=== PATIENT | male | born 1975 | race Caucasian/White ===

== ENCOUNTER 2016-11-23 17:08 | Emergency (ER) | payer BC ==
--- NOTE | 2016-11-23 17:25 | EDPHY ---
H & P Time Seen by Provider: 11/23/16 17:10 HPI/ROS: Chief complaint. Vomiting blood HPI. Patient 41-year-old male here by EMS with complaint of vomiting bright red blood since a 30 this morning. He has been drinking alcohol the last 2 days. He has a history of alcoholism and a period of sobriety until 2 days ago. He has some upper abdominal crampy type pain. He has not had similar symptoms previously. No chest discomfort or trouble breathing. Diagnosis 1 month ago DVT but not taking anticoagulation as he says his doctor [place] did not recommended. ROS Constitutional. no fever/chills, no weakness Eyes. no problems with vision ENT. no sore throat, no nasal drainage Cardiovascular. no chest pain Respiratory. no shortness of breath, no cough Abdominal. Abdominal pain and vomiting blood . no problems urinating MS. no calf pain/swelling, no neck/back pain, no joint pain Skin. no rash Lymph. no swollen glands Neuro. no headache, no dizziness, no difficulty walking or with speech Past Medical/Surgical History: Bipolar illness, chronic pain, and DVT Social History: Single, daily smoker, recent alcohol Physical Exam: General Appearance: Alert well-developed male mild distress vital signs significant for blood pressure 110/70 with heart rate 61 Eyes: Pupils equal and round no pallor or injection. ENT, Mouth: Mucous membranes are moist. Respiratory: There are no retractions, lungs are clear to auscultation. Cardiovascular: Regular rate and rhythm. Gastrointestinal: Abdomen is soft with epigastric tenderness. No masses. Bowel sounds normal. Rectal exam shows brown stool Neurological: Awake and alert, sensory and motor exams grossly normal. Skin: Warm and dry, no rashes. Musculoskeletal: Neck is supple nontender. Extremities symmetrical, full range of motion. Left lower extremity slightly swollen Psychiatric: Patient is oriented X 3, there is no agitation. Constitutional: Initial Vital Signs Temperature (C) 37 C 11/23/16 17:18 Heart Rate 70 11/23/16 17:18 Respiratory Rate 16 11/23/16 17:18 Blood Pressure 75/59 L 11/23/16 17:18 O2 Sat (%) 96 11/23/16 17:18 O2 Delivery Mode Room Air Allergies/Adverse Reactions: acetaminophen [From Tylenol] Allergy (Verified 11/23/16 17:27) Home Medications: Medication Instructions Recorded Clonazepam 11/23/16 Depakote 11/23/16 Famotidine [Pepcid] 40 mg PO DAILY #10 tablet 11/23/16 Oxycodone HCl 11/23/16 Medical Decision Making - Diagnostics Imaging Results: Imaging Impressions Extremity Venous Study 11/23/16 17:40 Impression: There is no sonographic evidence of deep or superficial vein thrombosis in the left lower extremity. Findings were discussed with TROY JIMÉNEZ MD at 18:24, on 11/23/2016. Ultrasound left lower extremity reviewed by me and discussed with Dr. Coleman shows no evidence for DVT Procedures: IV normal saline with 2 L given. Monitor. Protonix IV. Fentanyl for pain. Zofran for nausea ED Course/Re-evaluation: Stool Hemoccult is negative. Re-evaluation 6:30 p.m.--patient is stable. Conversational. Vital signs show heart rate 62 with blood pressure 127/69. Patient and I discussed imaging and laboratory evaluation. We discussed treatment plan including criteria for return importance of follow-up and further evaluation. He expresses understanding and agreement Patient has never vomited in the emergency department. Differential Diagnosis: I considered peptic ulcer disease, esophageal varices, significant upper GI bleed, DVT, pancreatitis Findings are consistent with alcohol intoxication. - Data Points Laboratory Results: Laboratory Results 11/23/16 17:20 11/23/16 17:20 11/23/16 11/23/16 11/23/16 17:20 17:20 17:20 WBC RBC Hgb Hct MCV MCH MCHC RDW Plt Count MPV Neut % (Auto) Lymph % (Auto) Banner % (Auto) Eos % (Auto) Baso % (Auto) Nucleat RBC Rel Count Absolute Neuts (auto) Absolute Lymphs (auto) Absolute Monos (auto) Absolute Eos (auto) Absolute Basos (auto) Absolute Nucleated RBC Immature Gran % Immature Gran # PT 14.1 SEC SEC (12.0-15.0) INR 1.10 (0.83-1.16) APTT 28.7 SEC SEC (23.0-38.0) Sodium 147 mEq/L H mEq/L (134-144) Potassium 4.3 mEq/L mEq/L (3.5-5.2) Chloride 110 mEq/L mEq/L (97-110) Carbon Dioxide 22 mEq/l mEq/l (22-31) Anion Gap 15 mEq/L mEq/L (8-16) BUN 10 mg/dL mg/dL (7-23) Creatinine 1.0 mg/dL mg/dL (0.7-1.3) Estimated GFR > 60 Glucose 83 mg/dL mg/dL (70-100) Calcium 9.4 mg/dL mg/dL (8.5-10.4) Total Bilirubin 0.6 mg/dL mg/dL (0.1-1.4) Conjugated Bilirubin 0.3 mg/dL mg/dL (0.0-0.5) Unconjugated Bilirubin 0.3 mg/dL mg/dL (0.0-1.1) AST 26 IU/L IU/L (17-59) ALT 44 IU/L IU/L (21-72) Alkaline Phosphatase 65 IU/L IU/L (38-126) Total Protein 7.2 g/dL g/dL (6.3-8.2) Albumin 4.6 g/dL g/dL (3.5-5.0) Lipase 76 IU/L IU/L (23-300) Stool Occult Bld Scrn NEGATIVE (NEGATIVE) Ethyl Alcohol 154 mg/dL H mg/dL (0-10) 11/23/16 17:20 WBC 8.40 10^3/uL 10^3/uL (3.80-9.50) RBC 4.82 10^6/uL 10^6/uL (4.40-6.38) Hgb 15.1 g/dL g/dL (13.7-17.5) Hct 43.1 % % (40.0-51.0) MCV 89.4 fL fL (81.5-99.8) MCH 31.3 pg pg (27.9-34.1) MCHC 35.0 g/dL g/dL (32.4-36.7) RDW 12.9 % % (11.5-15.2) Plt Count 245 10^3/uL 10^3/uL (150-400) MPV 10.5 fL fL (8.7-11.7) Neut % (Auto) 52.3 % % (39.3-74.2) Lymph % (Auto) 40.6 % % (15.0-45.0) Banner % (Auto) 5.7 % % (4.5-13.0) Eos % (Auto) 0.6 % % (0.6-7.6) Baso % (Auto) 0.6 % % (0.3-1.7) Nucleat RBC Rel Count 0.0 % % (0.0-0.2) Absolute Neuts (auto) 4.39 10^3/uL 10^3/uL (1.70-6.50) Absolute Lymphs (auto) 3.41 10^3/uL H 10^3/uL (1.00-3.00) Absolute Monos (auto) 0.48 10^3/uL 10^3/uL (0.30-0.80) Absolute Eos (auto) 0.05 10^3/uL 10^3/uL (0.03-0.40) Absolute Basos (auto) 0.05 10^3/uL 10^3/uL (0.02-0.10) Absolute Nucleated RBC 0.00 10^3/uL 10^3/uL (0-0.01) Immature Gran % 0.2 % % (0.0-1.1) Immature Gran # 0.02 10^3/uL 10^3/uL (0.00-0.10) PT INR APTT Sodium Potassium Chloride Carbon Dioxide Anion Gap BUN Creatinine Estimated GFR Glucose Calcium Total Bilirubin Conjugated Bilirubin Unconjugated Bilirubin AST ALT Alkaline Phosphatase Total Protein Albumin Lipase Stool Occult Bld Scrn Ethyl Alcohol Medications Given: Discontinued Medications Fentanyl (Sublimaze) 100 mcg IVP EDNOW ONE Stop: 11/23/16 17:39 Last Admin: 11/23/16 17:45 Dose: 100 mcg Sodium Chloride (Ns) 1,000 mls @ 0 mls/hr IV EDNOW ONE; Wide Open PRN Reason: Protocol Stop: 11/23/16 17:31 Last Admin: 11/23/16 17:31 Dose: 1,000 mls Famotidine/Sodium Chloride (Pepcid 20 Mg (Premix)) 50 mls @ 200 mls/hr IV EDNOW ONE Stop: 11/23/16 17:53 Last Admin: 11/23/16 17:45 Dose: 50 mls Ondansetron HCl (Zofran) 4 mg IVP EDNOW ONE Stop: 11/23/16 17:39 Last Admin: 11/23/16 17:45 Dose: 4 mg Departure - Departure Disposition: Home, Routine, Self-Care Clinical Impression: Alcohol intoxication Qualifiers: Complication of substance-induced condition: uncomplicated Qualified Code(s): F10.920 - Alcohol use, unspecified with intoxication, uncomplicated Condition: Good Instructions: Alcohol Intoxication (ED) Additional Instructions: Decrease her alcohol consumption. Return for further vomiting blood. Follow up with pain management physician and internal medicine physician Pepcid daily for the stomach irritation Referrals: Patient,NotPresent [Unknown] - As per Instructions Rosie Muñoz MD [[facility] Primary Care Provider] - As per Instructions Alessandra Bocanegra MD [Medical Doctor] - As per Instructions Prescriptions: Famotidine [Pepcid] 40 mg PO DAILY #10 tablet
[2016-11-23] MEDS ORDERED: NS 1,000 ML IV ONE (17:30)
[2016-11-23] MEDS ORDERED: fentaNYL 100 MCG/2 ML INJ IVP ONE (17:38)
[2016-11-23] MEDS ORDERED: ONDANSETRON 4 MG/2 ML VIAL IVP ONE (17:38)
[2016-11-23] MEDS ORDERED: FAMOTIDINE 20 MG/NACL 50 ML IV ONE (17:39)
[2016-11-23 17:50] LABS: % IMMATURE GRANULYOCYTES 0.2 % (0.0-1.1); ABSOLUTE IMMATURE GRANULOCYTES 0.02 10^3/uL (0.00-0.10); ADD DIFF? NO; ADD MORPH? NO; ADD SCAN? NO; ATYPICAL LYMPHOCYTE FLAG 0 (0-99); FRAGMENT RBC FLAG 0 (0-99); HEMATOCRIT 43.1 % (40.0-51.0); HEMOGLOBIN 15.1 g/dL (13.7-17.5); LEFT SHIFT FLG 0 (0-99); LIPEMIA HEMOLYSIS FLAG 90 (0-99); MEAN CELL HEMOGLOBIN 31.3 pg (27.9-34.1); MEAN CELL VOLUME 89.4 fL (81.5-99.8); MEAN PLATELET VOLUME 10.5 fL (8.7-11.7); PLATELET CLUMPS FLAG 0 (0-99); PLATELET COUNT 245 10^3/uL (150-400); RED BLOOD CELL COUNT 4.82 10^6/uL (4.40-6.38); RED CELL DISTRIBUTION WIDTH 12.9 % (11.5-15.2)
[2016-11-23 17:56] LABS: ALANINE AMINOTRANSFERASE 44 IU/L (21-72); ALBUMIN 4.6 g/dL (3.5-5.0); ALKALINE PHOSPHATASE 65 IU/L (38-126); ANION GAP 15 mEq/L (8-16); APTT 28.7 SEC (23.0-38.0); ASPARTATE AMINOTRANSFERASE 26 IU/L (17-59); BILIRUBIN,TOTAL 0.6 mg/dL (0.1-1.4); BILIRUBIN-CONJUGATED 0.3 mg/dL (0.0-0.5); BILIRUBIN-UNCONJUGATED 0.3 mg/dL (0.0-1.1); CALCIUM 9.4 mg/dL (8.5-10.4); CARBON DIOXIDE 22 mEq/l (22-31); CHLORIDE 110 mEq/L (97-110); ETHANOL SERUM 154 mg/dL (0-10); GLOMERULAR FILTRATION RATE > 60; GLUCOSE 83 mg/dL (70-100); INR 1.1 (0.83-1.16); POTASSIUM 4.3 mEq/L (3.5-5.2); PROTIME(PATIENT) 14.1 SEC (12.0-15.0); SODIUM 147 mEq/L (134-144); TOTAL PROTEIN 7.2 g/dL (6.3-8.2)
[2016-11-23 18:30] VITALS: PULSE 60
[2016-11-23 18:55] VITALS: BP 124/89; RESP 14; TEMP 98.1; O2SAT 94
== END 2016-11-23 19:00 | disposition home or self-care (01) ==
PROC: 3E0337Z Introduction of Electrolytic and Water Balance Substance into Peripheral Vein, Percutaneous Approach (ICD-10-PCS; principal; 2016-11-23)
DX: F10.920 Alcohol use, unspecified with intoxication, uncomplicated (principal); E86.9 Volume depletion, unspecified; F17.200 Nicotine dependence, unspecified, uncomplicated
CPT/HCPCS: 96374; G0480; J2405; J3010

== ENCOUNTER 2016-11-23 19:56 | Emergency (ER) | payer BC ==
[2016-11-23 20:01] VITALS: RESP 18
[2016-11-23 20:31] LABS: % IMMATURE GRANULYOCYTES 0.2 % (0.0-1.1); ABSOLUTE IMMATURE GRANULOCYTES 0.02 10^3/uL (0.00-0.10); ADD DIFF? NO; ADD MORPH? NO; ADD SCAN? NO; ATYPICAL LYMPHOCYTE FLAG 0 (0-99); FRAGMENT RBC FLAG 0 (0-99); HEMATOCRIT 42.5 % (40.0-51.0); HEMOGLOBIN 14.6 g/dL (13.7-17.5); LEFT SHIFT FLG 0 (0-99); LIPEMIA HEMOLYSIS FLAG 90 (0-99); MEAN CELL HEMOGLOBIN 30.7 pg (27.9-34.1); MEAN CELL HEMOGLOBIN CONCENTR. 34.4 g/dL (32.4-36.7); MEAN CELL VOLUME 89.3 fL (81.5-99.8); MEAN PLATELET VOLUME 10.3 fL (8.7-11.7); PLATELET CLUMPS FLAG 10 (0-99); PLATELET COUNT 225 10^3/uL (150-400); RED BLOOD CELL COUNT 4.76 10^6/uL (4.40-6.38); RED CELL DISTRIBUTION WIDTH 13.1 % (11.5-15.2)
[2016-11-23 20:39] LABS: ETHANOL SERUM 104 mg/dL (0-10)
--- NOTE | 2016-11-23 20:40 | EDPHY ---
H & P Time Seen by Provider: 11/23/16 20:09 HPI/ROS: Chief complaint. Vomiting blood HPI. 41-year-old male evaluated here earlier today for vomiting blood. Workup was normal and the patient did not have any vomiting in the department. He was heme-negative. His hemoglobin and hematocrit were stable. His vitals were fine. He was discharged with H2 blockers. He states that [place] the bus stop and vomited once bright red blood. Complains of continued epigastric pain. ROS Constitutional. no fever/chills, no weakness Eyes. no problems with vision ENT. no sore throat, no nasal drainage Cardiovascular. no chest pain Respiratory. no shortness of breath, no cough Abdominal. Upper abdominal pain and vomiting blood x1 . no problems urinating MS. no calf pain/swelling, no neck/back pain, no joint pain Skin. no rash Lymph. no swollen glands Neuro. no headache, no dizziness, no difficulty walking or with speech Past Medical/Surgical History: Bipolar illness, alcoholism, chronic pain Social History: Single, daily smoker, recent alcohol Smoking Status: Heavy smoker Physical Exam: General Appearance: Alert well-developed male mild distress vital signs are stable. Heart rate 71. Blood pressure 136/74 Eyes: Pupils equal and round no pallor or injection. ENT, Mouth: Mucous membranes are moist. Respiratory: There are no retractions, lungs are clear to auscultation. Cardiovascular: Regular rate and rhythm. Gastrointestinal: Epigastric tenderness. Otherwise abdomen is soft. No masses. Normal bowel sounds Neurological: Awake and alert, sensory and motor exams grossly normal. Skin: Warm and dry, no rashes. Musculoskeletal: Neck is supple nontender. Extremities symmetrical, full range of motion. Psychiatric: Patient is oriented X 3, there is no agitation. Constitutional: Initial Vital Signs Temperature (C) 36.7 C 11/23/16 19:59 Heart Rate 71 11/23/16 19:59 Respiratory Rate 18 11/23/16 19:59 Blood Pressure 136/74 H 11/23/16 19:59 O2 Sat (%) 97 11/23/16 19:59 O2 Delivery Mode Room Air Allergies/Adverse Reactions: acetaminophen [From Tylenol] Allergy (Verified 11/23/16 17:27) Home Medications: Medication Instructions Recorded Clonazepam 11/23/16 Depakote 11/23/16 Famotidine [Pepcid] 40 mg PO DAILY #10 tablet 11/23/16 Oxycodone HCl 11/23/16 Medical Decision Making ED Course/Re-evaluation: Re-evaluation at 8:50 p.m.. Patient is stable with stable vital signs and no vomiting. His H&H is unchanged. The patient and I discussed laboratory evaluation, treatment plan including importance of follow-up. He expresses understanding and agreement Re-evaluation at 9:30 p.m.. Patient is stable. There is no vomiting. He complains of abdominal pain. He is given a GI cocktail Differential Diagnosis: Patient complains of vomiting blood however his workup is entirely normal. He states that he vomited blood again. However his H&H are unchanged. There is no acute findings. He has stable vital signs. - Data Points Laboratory Results: Laboratory Results 11/23/16 20:16 11/23/16 11/23/16 20:16 20:16 WBC 9.04 10^3/uL 10^3/uL (3.80-9.50) RBC 4.76 10^6/uL 10^6/uL (4.40-6.38) Hgb 14.6 g/dL g/dL (13.7-17.5) Hct 42.5 % % (40.0-51.0) MCV 89.3 fL fL (81.5-99.8) MCH 30.7 pg pg (27.9-34.1) MCHC 34.4 g/dL g/dL (32.4-36.7) RDW 13.1 % % (11.5-15.2) Plt Count 225 10^3/uL 10^3/uL (150-400) MPV 10.3 fL fL (8.7-11.7) Neut % (Auto) 53.4 % % (39.3-74.2) Lymph % (Auto) 39.8 % % (15.0-45.0) Irwin % (Auto) 5.9 % % (4.5-13.0) Eos % (Auto) 0.4 % L % (0.6-7.6) Baso % (Auto) 0.3 % % (0.3-1.7) Nucleat RBC Rel Count 0.0 % % (0.0-0.2) Absolute Neuts (auto) 4.82 10^3/uL 10^3/uL (1.70-6.50) Absolute Lymphs (auto) 3.60 10^3/uL H 10^3/uL (1.00-3.00) Absolute Monos (auto) 0.53 10^3/uL 10^3/uL (0.30-0.80) Absolute Eos (auto) 0.04 10^3/uL 10^3/uL (0.03-0.40) Absolute Basos (auto) 0.03 10^3/uL 10^3/uL (0.02-0.10) Absolute Nucleated RBC 0.00 10^3/uL 10^3/uL (0-0.01) Immature Gran % 0.2 % % (0.0-1.1) Immature Gran # 0.02 10^3/uL 10^3/uL (0.00-0.10) Ethyl Alcohol 104 mg/dL H mg/dL (0-10) Departure - Departure Disposition: Home, Routine, Self-Care Clinical Impression: Alcohol intoxication Qualifiers: Complication of substance-induced condition: uncomplicated Qualified Code(s): F10.920 - Alcohol use, unspecified with intoxication, uncomplicated Abdominal pain Qualifiers: Abdominal location: epigastric Qualified Code(s): R10.13 - Epigastric pain Condition: Good Instructions: Alcohol Intoxication (ED) Additional Instructions: Continue your medication--Pepcid--for your stomach. Discontinue drinking alcohol. You may walk into [facility] tomorrow morning without appointment for further evaluation between 8 and 11:00 a.m.. Referrals: NONE *PRIMARY CARE P,. [Primary Care Provider] - As per Instructions [facility] [Outside] - 1 day without fail
[2016-11-23] MEDS ORDERED: MAG HYDROX/AL HYDROX/SIMETH 30 ML UDCUP PO ONE (21:36)
[2016-11-23] MEDS ORDERED: LIDOCAINE 2% VISCOUS 15 ML UDCUP PO ONE (21:36)
[2016-11-23 21:58] VITALS: BP 129/76; PULSE 64; TEMP 98.2; O2SAT 96
== END 2016-11-23 21:57 | disposition home or self-care (01) ==
DX: F10.920 Alcohol use, unspecified with intoxication, uncomplicated (principal); R10.13 Epigastric pain; F17.200 Nicotine dependence, unspecified, uncomplicated
CPT/HCPCS: G0480

== ENCOUNTER 2016-11-27 15:26 | Emergency (ER) | payer BC ==
--- NOTE | 2016-11-27 15:38 | EDPHY ---
H & P Time Seen by Provider: 11/27/16 15:37 - Personal History Tetanus Vaccine Date: 2013 - Medical/Surgical History Hx Asthma: No Hx Chronic Respiratory Disease: No Hx Diabetes: No Hx Cardiac Disease: No Hx Renal Disease: No Hx Cirrhosis: No Hx Alcoholism: Yes Hx HIV/AIDS: No Hx Splenectomy or Spleen Trauma: No Other PMH: bipolar, ETOH abuse, chronic pain. PSH: pilonidal cyst I and D, back microdiscectomy - Social History Smoking Status: Heavy smoker Allergies/Adverse Reactions: acetaminophen [From Tylenol] Allergy (Verified 11/23/16 17:27) Home Medications: Medication Instructions Recorded Clonazepam 11/23/16 Depakote 11/23/16 Famotidine [Pepcid] 40 mg PO DAILY #10 tablet 11/23/16 Oxycodone HCl 11/23/16 Medical Decision Making ED Course/Re-evaluation: CHIEF COMPLAINT: Both feet hurt and he is on meth and Percocet HISTORY OF PRESENT ILLNESS: 41-year-old gentleman who is brought in by [facility] for medical clearance for shelter due to his methamphetamine and narcotic abuse. Apparently he is complaining of foot pain from walking around barefoot. He has no other complaints. REVIEW OF SYSTEMS: A 10 point review of systems was performed and is negative with the exception of the elements mentioned in the history of present illness. PHYSICAL EXAM: HR, BP, O2 Sat, RR. Temp noted General Appearance: Alert, well hydrated, appropriate, and non-toxic appearing. Head: Atraumatic without scalp tenderness or obvious injury Eyes: Pupils equal, round, reactive to light and accommodation, EOMI, no trauma , no injection. Ears: Clear bilaterally, no perforation, normal landmarks Nose: Atraumatic, no rhinorrhea, clear. Throat: There is no erythema or exudates, no lesions, normal tonsils, mucus membranes moist. Neck: Supple, 2+ carotid upstroke, nontender, no lymphadenopathy. Respiratory: No retractions, no distress, no wheezes, and no accessory muscle use. Lungs are clear to auscultation bilaterally. Cardiovascular: Regular rate and rhythm, no murmurs, rubs, or gallops. Bilateral carotid, radial, dorsalis pedis, and posterior tibial pulses intact. Good capillary refill all extremities. Gastrointestinal: Abdomen is soft, nontender, non-distended, no masses, no rebound, no guarding, no peritoneal signs. Musculoskeletal: Normal active ROM of all extremities, atraumatic. Neurological: Alert, appropriate, and interactive. The patient has normal DTRs and non-focal cranial nerves, motor, sensory, and cerebellar exam. Skin: There are no open cuts, no evidence of infection. He has red feet that are extremely dirty. He otherwise has no obvious infection or injuries. He is able ambulate without difficulty. No rashes, good turgor, no nodules on palpation. Past medical history: Drug abuse Past surgical history: Noncontributory Family history: Noncontributory Social history: Lives on the street, abuses drugs alcohol and tobacco, not employed, medical clearance for shelter DIFFERENTIAL DIAGNOSIS: Includes but is not limited to: Foot infection, foot laceration, bony injury, trench foot, fungal infection MEDICAL DECISION MAKING: This patient medically cleared for shelter. He does not have any evidence of infection or laceration or bony injury on his feet. His feet are just red and filthy from walking barefoot. Departure - Departure Disposition: Home, Routine, Self-Care Clinical Impression: Medical clearance for incarceration Condition: Good Instructions: Foot Contusion (ED)
[2016-11-27 15:41] VITALS: BP 148/88; PULSE 67; RESP 17; TEMP 98.2; O2SAT 96
== END 2016-11-27 15:58 | disposition home or self-care (01) ==
DX: F17.200 Nicotine dependence, unspecified, uncomplicated

== ENCOUNTER 2016-11-29 05:00 | Emergency (ER) | payer BC ==
[2016-11-29 05:06] VITALS: RESP 16; TEMP 98.2
--- NOTE | 2016-11-29 05:23 | EDPHY ---
H & P Stated Complaint: SI Source: Patient - Personal History Current Tetanus/Diphtheria Vaccine: Yes Current Tetanus Diphtheria and Acellular Pertussis (TDAP): Yes Tetanus Vaccine Date: 2013 - Medical/Surgical History Hx Asthma: No Hx Chronic Respiratory Disease: No Hx Diabetes: No Hx Cardiac Disease: No Hx Renal Disease: No Hx Cirrhosis: No Hx Alcoholism: Yes Hx HIV/AIDS: No Hx Splenectomy or Spleen Trauma: No Other PMH: bipolar, ETOH abuse, chronic pain. PSH: pilonidal cyst I and D, back microdiscectomy - Social History Smoking Status: Heavy smoker <Hemal Emanuel - Last Filed: 11/29/16 23:09> <Zenaida Cervantes - Last Filed: 12/01/16 22:51> HPI/ROS: HPI CHIEF COMPLAINT: Suicidal ideation HISTORY OF PRESENT ILLNESS: This patient 41-year-old male, presents emergency room through the main entrance walk-in. He is stating he is suicidal. He has a plan to jump from a high elevation or hang himself. He has a history of bipolar he is off his medications. He states he moved [facility] 1 week ago from [place]. He is homeless. Unemployed. History of polysubstance abuse and recent incarceration. Past Medical History: Bipolar disorder, alcohol abuse, homelessness Past Surgical History: Pilonidal cyst, micro diskectomy Social History: Homeless, polysubstance abuse including methamphetamine and alcohol Family History: Noncontributory ROS REVIEW OF SYSTEMS: A comprehensive 10 point review of systems is otherwise negative aside from elements mentioned in the history of present illness. Exam Constitutional triage nursing summary reviewed, vital signs reviewed, awake/ alert. Eyes normal conjunctivae and sclera, EOMI, PERRLA. HENT normal inspection, atraumatic, moist mucus membranes, no epistaxis, neck supple/ no meningismus, no raccoon eyes. Respiratory clear to auscultation bilaterally, normal breath sounds, no respiratory distress, no wheezing. Cardiovascular rate normal, regular rhythm, no murmur, no edema, distal pulses normal. Gastrointestinal soft, non-tender, no rebound, no guarding, normal bowel sounds, no distension, no pulsatile mass. Genitourinary no CVA tenderness. Musculoskeletal no midline vertebral tenderness, full range of motion, no calf swelling, no tenderness of extremities, no meningismus, good pulses, neurovascularly intact. Skin pink, warm, & dry, no rash, skin atraumatic. Neurologic awake, alert and oriented x 3, AAOx3, moves all 4 extremities equally, motor intact, sensory intact, CN II-XII intact, normal cerebellar, normal vision, normal speech. Psychiatric flat affect, suicidal Heme/Lymph/Immune no lymphadenopathy. Differential Diagnosis: Includes but is not limited to in a particular order bipolar disorder, depression, suicidal ideation, mood disorder Medical Decision Making: IV stick for blood draw for medical clearance. Drug screen. Mental health evaluation. M1 hold. Re-evaluation: (Hemal Emanuel) Constitutional: Initial Vital Signs Temperature (C) 36.8 C 11/29/16 05:05 Heart Rate 65 11/29/16 05:05 Respiratory Rate 16 11/29/16 05:05 Blood Pressure 134/87 H 11/29/16 05:05 O2 Sat (%) 97 11/29/16 05:05 O2 Delivery Mode Room Air Allergies/Adverse Reactions: acetaminophen [From Tylenol] Allergy (Verified 11/29/16 05:06) Home Medications: Medication Instructions Recorded Clonazepam 11/23/16 Depakote 11/23/16 Famotidine [Pepcid] 40 mg PO DAILY #10 tablet 11/23/16 Medical Decision Making <Hemal Emanuel - Last Filed: 11/29/16 23:09> <Zenaida Cervantes - Last Filed: 12/01/16 22:51> Other Provider: 0700: I assumed care of this patient at shift change from Dr. Emanuel. This is a 41 y/o male with a history of bipolar disorder who arrives on an M1 for suicidal ideation. He tells me for the last month he's felt "just tired of life " and says, "I want to ." He has attempted to hang himself in the past, but denies recent self-harm. He notes he has not taken his Depakote in 2 months. He has never used lithium. He also complains of chronic whole body pain that he usually uses oxycodone for. I offered Tylenol for pain and he declined at this time. Urine sample pending. Plan for mental health evaluation once medically clear. Patient was stable throughout emergency department course. I was notified by [facility] that he has been accepted at a [facility], accepting physician. Patient was transferred at 2:30 p.m.. (Zenaida Cervantes) - Data Points Laboratory Results: Laboratory Results 11/29/16 05:52 11/29/16 05:52 Medications Given: Discontinued Medications Ibuprofen (Motrin) 600 mg PO EDNOW ONE Stop: 11/29/16 11:53 Last Admin: 11/29/16 11:55 Dose: 600 mg Departure <Hemal Emanuel - Last Filed: 11/29/16 23:09> <Zenaida Cervantes - Last Filed: 12/01/16 22:51> - Departure Disposition: Other Psych, Not [facility] Clinical Impression: Suicidal ideations Condition: Fair Referrals: NONE *PRIMARY CARE P,. [Primary Care Provider] - As per Instructions Report Scribed for: Zenaida Cervantes Report Scribed by: Soledad Moreno Date of Report: 11/29/16 Time of Report: 07:27 <Zenaida Cervantes - Last Filed: 12/01/16 22:51>
[2016-11-29 06:21] LABS: % IMMATURE GRANULYOCYTES 0.4 % (0.0-1.1); ABSOLUTE IMMATURE GRANULOCYTES 0.04 10^3/uL (0.00-0.10); ADD DIFF? NO; ADD MORPH? NO; ADD SCAN? NO; ATYPICAL LYMPHOCYTE FLAG 10 (0-99); FRAGMENT RBC FLAG 0 (0-99); HEMATOCRIT 39.6 % (40.0-51.0); HEMOGLOBIN 14.1 g/dL (13.7-17.5); LEFT SHIFT FLG 0 (0-99); LIPEMIA HEMOLYSIS FLAG 90 (0-99); MEAN CELL HEMOGLOBIN 31.2 pg (27.9-34.1); MEAN CELL HEMOGLOBIN CONCENTR. 35.6 g/dL (32.4-36.7); MEAN CELL VOLUME 87.6 fL (81.5-99.8); MEAN PLATELET VOLUME 11.1 fL (8.7-11.7); PLATELET CLUMPS FLAG 0 (0-99); PLATELET COUNT 211 10^3/uL (150-400); RED BLOOD CELL COUNT 4.52 10^6/uL (4.40-6.38); RED CELL DISTRIBUTION WIDTH 12.6 % (11.5-15.2)
[2016-11-29 06:35] LABS: ANION GAP 12 mEq/L (8-16); CALCIUM 9.8 mg/dL (8.5-10.4); CARBON DIOXIDE 24 mEq/l (22-31); CHLORIDE 99 mEq/L (97-110); CREATININE 1.1 mg/dL (0.7-1.3); ETHANOL SERUM < 10 mg/dL (0-10); GLOMERULAR FILTRATION RATE > 60; GLUCOSE 94 mg/dL (70-100); POTASSIUM 3.2 mEq/L (3.5-5.2); SODIUM 135 mEq/L (134-144)
[2016-11-29] MEDS ORDERED: IBUPROFEN 600 MG TAB PO ONE (11:52)
[2016-11-29 14:36] VITALS: BP 127/57; PULSE 57; O2SAT 97
== END 2016-11-29 14:59 ==
DX: R45.851 Suicidal ideations (principal); F17.200 Nicotine dependence, unspecified, uncomplicated
CPT/HCPCS: 80305; G0480